=== PATIENT | male | born 1940 | race Caucasian/White ===

== ENCOUNTER → 2017-09-29 | Outpatient (CLI) | payer MEDICARE, OTHER ==
[~2017-09-29] MED LIST: BACTRIM DS 8001 TA1 PO; COREG; COREG12.5 MG PO; KEFLEX500 MG PO; KLONOPIN0.5 MG PO; PLAVIX75 MG PO; PRINIVIL5 MG PO; SIMVASTIN; SYNTHROID,LEVO50 MCG PO; VIBRAMYCIN100 MG PO; ZOCOR40 MG PO
== END | disposition home or self-care (01) ==
LOC: RAD 10:03
DX: M47.896 Other spondylosis, lumbar region (principal); M41.86 Other forms of scoliosis, lumbar region; J44.9 Chronic obstructive pulmonary disease, unspecified

== ENCOUNTER → 2018-02-25 | Outpatient (CLI) | payer MEDICARE, OTHER ==
--- NOTE | ~2018-02-25 | PF ---
[place], [place] PULMONARY FUNCTION TEST [id number] UNIT #: [id number] ROOM: DOCTOR: HUSEYIN HARMAN MD,JANEY BIRTHDATE: [birth year] DOS: 02/25/2018 THE TESTING ORDERED BY: Dr. Russell Quintanilla. HISTORY: The patient was recorded as 77-year-old male, height of 70 inches, weight of 220 pounds, BMI 31.8. Testing was done for the assessment of symptoms of wheezing. The patient also reported symptoms of productive cough and shortness of breath with exertion. Tobacco is noted for the patient as [id number] history of tobacco use. Tobacco cessation was done 10 years ago. SPIROMETRY: The FVC were recorded 4.20 liters at 106% predicted value. The FEV1 was 2.85 liters, 97% predicted value, both noted normal. The ratio of FEV1/FVC recorded as 65%. Flow volume loop for this patient reviewed shows an obstructive airway pattern. Lung volume shows thoracic gas volume 97%, residual volume 108%, total lung capacity of 97%. The patient lung diffusion noted mildly decreased to 67% without correction of carbon monoxide hemoglobin values. The patient's airway resistance and passive conductance noted normal partial improvement post-bronchodilator test. FINAL IMPRESSION: The test is suggestive of evidence of mild chronic obstructive pulmonary disease at the present time. Clinical correlation would be advised. JANEY FONTANEZ MD CM:PFREPORT:PULMONARY FUNCTION TEST [id number] JANEY HARMAN MD
== END | disposition home or self-care (01) ==
LOC: CP 11:29
DX: R06.2 Wheezing (principal)

== ENCOUNTER → 2019-07-23 | Outpatient (CLI) | payer MEDICARE, OTHER ==
[2019-07-23 09:42] LABS: BASO # 0.1 10*3/uL (0.0-0.1); BASO % 1.3 % (0.0-1.0); EOS # 0.3 10*3/uL (0.0-0.4); EOS % 2.4 % (1.0-4.0); HEMATOCRIT 50.4 % (42.0-52.0); HEMOGLOBIN 16.2 g/dl (14.0-18.0); LYMPH # 4.5 10*3/uL (1.3-4.4); LYMPH % 42.7 % (27.0-41.0); MEAN CELL VOLUME 96.9 fl (80.0-94.0); MEAN CORPUSCULAR HGB 31.2 pg (27.0-31.0); MEAN CORPUSCULAR HGB CONC 32.1 g/dl (33.0-37.0); MEAN PLATELET VOLUME 10.1 fl (9.6-12.3); MONO # 0.8 10*3/uL (0.1-1.0); MONO % 7.2 % (3.0-9.0); NEUT # 4.8 10*3/uL (2.3-7.9); NEUT % 45.9 % (47.0-73.0); PLATELET COUNT AUTOMATED 286 10*3/uL (130-400); RED CELL DISTRI WIDTH 14.1 % (0-14.5); WHITE BLOOD COUNT 10.5 10*3/uL (4.8-10.8)
[2019-07-23 09:53] LABS: ALBUMIN 3.5 gm/dl (3.1-4.5); ALKALINE PHOSPHATASE 125 U/L (45-117); BUN 12 mg/dl (7-24); CHLORIDE 109 mmol/L (98-107); CHOLESTEROL 195 mg/dL (<200); CREATININE 1.23 mg/dL (0.70-1.30); HDL CHOLESTEROL 27 mg/dl (40-60); LDL CHOLESTEROL 112 mg/dL (9-159); POTASSIUM 4.3 mmol/L (3.5-5.1); SGOT/AST 14 IU/L (3-35); SGPT/ALT 20 U/L (12-78); SODIUM 141 mmol/L (136-145); TOTAL PROTEIN 7.3 gm/dL (6.4-8.2); TRIGLYCERIDES 281 mg/dl (<150); URIC ACID 5.6 mg/dL (3.5-7.2); VLDL CHOLESTEROL 56 mg/dL (6-40)
== END | disposition home or self-care (01) ==
LOC: LAB 08:40
PROVIDERS: Internal Medicine Cardiovascular Disease
DX: E78.5 Hyperlipidemia, unspecified (principal); I11.9 Hypertensive heart disease without heart failure; I49.9 Cardiac arrhythmia, unspecified

== ENCOUNTER → 2020-03-17 | Outpatient (CLI) | payer MEDICARE, OTHER ==
[2020-03-17 09:47] LABS: BASO # 0.1 10*3/uL (0.0-0.1); BASO % 0.6 % (0.0-1.0); EOS # 0.2 10*3/uL (0.0-0.4); EOS % 2.3 % (1.0-4.0); HEMATOCRIT 40.3 % (42.0-52.0); LYMPH # 3.1 10*3/uL (1.3-4.4); LYMPH % 40.5 % (27.0-41.0); MEAN CELL VOLUME 93.1 fl (80.0-94.0); MEAN CORPUSCULAR HGB 29.8 pg (27.0-31.0); MEAN PLATELET VOLUME 9.4 fl (9.6-12.3); MONO # 0.6 10*3/uL (0.1-1.0); MONO % 8.3 % (3.0-9.0); NEUT # 3.7 10*3/uL (2.3-7.9); NEUT % 48.2 % (47.0-73.0); PLATELET COUNT AUTOMATED 245 10*3/uL (130-400); RED BLOOD COUNT 4.33 10*6/uL (4.50-5.90); RED CELL DISTRI WIDTH 13.3 % (0-14.5); WHITE BLOOD COUNT 7.7 10*3/uL (4.8-10.8)
[2020-03-17 09:58] LABS: BUN 15 mg/dl (7-24); CHLORIDE 107 mmol/L (98-107); CREATININE 1.03 mg/dL (0.70-1.30); POTASSIUM 4.1 mmol/L (3.5-5.1); SODIUM 139 mmol/L (136-145)
== END | disposition home or self-care (01) ==
LOC: LAB 09:15
PROVIDERS: ATTEND Internal Medicine Cardiovascular Disease
DX: I25.10 Atherosclerotic heart disease of native coronary artery without angina pectoris (principal)